=== PATIENT | female | born 1980 | race Two or more races ===

== ENCOUNTER 2021-12-12 14:37 | Emergency (ER) | payer MEDICAID ==
[~2021-12-12] VITALS: Ht 157.5 cm; Wt 78.0 kg
[2021-12-12] MEDS ORDERED: TETANUS, DIPHTHERIA, PERTUSSIS VAC/PF 0.5ML (>10YR OLD) IM ONE (16:45)
[2021-12-12] MEDS ORDERED: BACITRACIN ZINC OINT UDPKT TOP ONE (16:45)
[2021-12-12] MEDS ORDERED: LIDOCAINE HCL/EPINEPHRINE 1%-EPI 1:100,000 20 ML VIAL INFIL ONE (16:45)
[2021-12-12] MEDS ORDERED: ACETAMINOPHEN WITH CODEINE 300/30MG TABLET PO ONE (16:45)
[2021-12-12] MEDS ORDERED: BO1 TP (17:28)
[2021-12-12 18:03] VITALS: BP 112/78
== END 2021-12-12 18:03 | disposition home or self-care (01) ==
LOC: ER 14:54
DX: S51.812A Laceration without foreign body of left forearm, initial encounter (principal); W26.8XXA Contact with other sharp object(s), not elsewhere classified, initial encounter; Y93.89 Activity, other specified; Y92.038 Other place in apartment as the place of occurrence of the external cause
CPT/HCPCS: 12002; 90471; 90715; 99283

== ENCOUNTER 2021-12-14 11:22 | Emergency (ER) | payer MEDICAID ==
[~2021-12-14] VITALS: Ht 157.5 cm; Wt 75.0 kg
[~2021-12-14 11:22] MED LIST: BO1 TP
[2021-12-14 11:42] VITALS: BP 136/68
== END 2021-12-14 16:15 | disposition home or self-care (01) ==
LOC: ER 11:22
DX: Z48.00 Encounter for change or removal of nonsurgical wound dressing (principal)
CPT/HCPCS: 99281

== ENCOUNTER 2023-11-06 04:20 | Emergency (ER) | payer MEDICAID ==
[~2023-11-06] VITALS: Ht 160 cm; Wt 83.0 kg
[2023-11-06 04:29] VITALS: BP 137/87; PULSE 91; RESP 14; TEMP 98.2; O2SAT 97
== END 2023-11-06 07:25 | disposition home or self-care (01) ==
LOC: ER 04:20
DX: T16.2XXA Foreign body in left ear, initial encounter (principal); Z88.0 Allergy status to penicillin; X58.XXXA Exposure to other specified factors, initial encounter; Y93.89 Activity, other specified; Y92.89 Other specified places as the place of occurrence of the external cause; Y99.8 Other external cause status
CPT/HCPCS: 99281